=== PATIENT | male | born 1935 | race Caucasian/White ===

== ENCOUNTER 2017-03-03 20:44 | Inpatient (IN) | payer MEDICARE, MEDICAID ==
[2017-03-03 21:37] LABS: HEMATOCRIT 46.1 % (41.0-60); HEMOGLOBIN 15.7 gm/dL (12-16); MEAN CORPUSCULAR HEMOGLOBIN 31.4 pg (27.0-31.0); MEAN CORPUSCULAR HGB CONC 34.1 pg (28.0-36.0); MEAN PLATELET VOLUME 7.8 fl; RED BLOOD COUNT 5.01 Mil/cmm (3.80-5.80); RED CELL DISTRIBUTION WIDTH 11.7 % (11.5-20.0)
[2017-03-03 21:41] LABS: PLATELET COUNT 182 Th/cmm (150-400)
[2017-03-03 21:42] LABS: WHITE BLOOD COUNT 14.2 Th/cmm (4.8-10.8)
[2017-03-03 21:56] LABS: TOTAL CELLS COUNTED 100
[2017-03-03 21:57] LABS: ALB/GLOB RATIO 1.1 (1.0-1.8); ALKALINE PHOSPHATASE 64 U/L (34-104); ANION GAP 10.5 (7.0-16.0); BILIRUBIN,TOTAL 0.4 mg/dL (0.3-1.0); BUN - UREA NITROGEN 18 mg/dL (7-25); CALCIUM SERUM 8.8 mg/dL (8.6-10.3); CARBON DIOXIDE 27.1 mEq/L (21.0-31.0); CHLORIDE 97 mEq/L (98-107); GLUCOSE 165 mg/dL (70-105); POTASSIUM SERUM 3.6 mEq/L (3.5-5.1); SGOT 20 U/L (13-39); SGPT/ALT 11 U/L (7-52); SODIUM SERUM 131 mEq/L (136-145)
[2017-03-03 22:01] LABS: BAND NEUTROPHILE 21 % (0-10); BASOPHIL 0 % (0-3); EOSINOPHIL 0 % (0-5); NEUTROPHILS 70 % (40-80); PLATELET ESTIMATE ADEQUATE (NORMAL); PLATELET MORPHOLOGY NORMAL (NORMAL)
[2017-03-03] MEDS ORDERED: cefTRIAXone 1 GM in Sodium Chloride 0.9% 50 ML IV ONE (22:12)
[2017-03-03] MEDS ORDERED: Sodium Chloride 0.9% 500 ML IV ONE (22:12)
[2017-03-03 22:39] LABS: URINE BILIRUBIN NEGATIVE (NEGATIVE); URINE BLOOD LARGE (NEGATIVE); URINE GLUCOSE (UA) 100 mg/dL (NEGATIVE); URINE KETONE NEGATIVE (NEGATIVE); URINE PH 5.5 (4.6 - 8.0); URINE PROTEIN TRACE mg/dL (NEGATIVE); URINE UROBILINOGEN 0.2 E.U./dL (0.2 - 1.0)
--- NOTE | 2017-03-03 23:01 | ED Physician Chart ---
ED Chief Complaint/HPI - Patient Information Date Seen:: 03/03/17 Time Seen:: 21:20 Chief Complaint:: Fever History of Present Illness:: 81 yo male was brought from [facility] to ER for evaluation of fever (102.4 F) and tachycardia (HR 121). He was given Tylenol 650mg once before transfer. At ER, his temperature was 99 F. The patient did have a history of hematuria. Allergies:: Allergies Allergy/AdvReac Type Severity Reaction Status Date / Time No Known Drug Allergies Allergy Verified 03/03/17 21:03 Vitals:: Vital Signs - 8 hr 03/03/17 20:45 Temp 99.0 F HR 78 RR 20 BP 136/60 O2 Sat % 92 ED Review of Systems - Review of Systems General/Constitutional: No fever, No chills, Weakness Skin: No skin lesions Head: No headache Eyes: No loss of vision ENT: No nasal drainage Neck: No neck pain Cardio Vascular: No chest pain Pulmonary: No SOB GI: No nausea, No vomiting G/U: Hematuria Musculoskeletal: No bone or joint pain Psychiatric: Prior psych history ED Past Medical History - Past Medical History Past Medical History: Thyroid disorder, Dementia, Other (PVD, OA, BPH, Dysphagia ) Surgical History: other (Right AKA) Psychiatricy History: Dementia (Alzheimer's disease), Other (Psychosis, anxiety) Family Medical History - Family Member Mother History Unknown: Yes Ethnicity: Unknown Living Status: Unknown ED Physical Exam - Physical Examination Head: Atraumatic Eyes: PERRL, EOMI Skin: No ecchymosis ENMT: Nasal exam nl Neck: No nuchal rigidity Other Respiratory comments:: Bilateral lung field rhonchi Cardio Vascular: RRR, No murmur, gallop, rubs, NL S1 S2 GI: No tenderness/rebounding/guarding Other Extremities comments:: Right above knee amputation Other Neuro/Psych comments:: confused ED Labs/Radiology/EKG Results - Lab Results Results: Laboratory Tests 03/03/17 03/03/17 03/03/17 21:31 21:31 21:31 WBC 14.2 H D RBC 5.01 Hgb 15.7 Hct 46.1 MCV 92.0 MCH 31.4 H MCHC Differential 34.1 RDW 11.7 Plt Count 182 D MPV 7.8 Band Neutrophils % 21 H Neutrophils (Manual) 70 Lymphocytes 5 L Monocytes 4 Eosinophils 0 Basophils 0 Platelet Estimate ADEQUATE Platelet Morphology NORMAL RBC Morph Micro Appear NORMAL Sodium 131 L Potassium 3.6 Chloride 97 L Carbon Dioxide 27.1 Anion Gap 10.5 BUN 18 Creatinine 1.0 Est GFR ( Amer) TNP Est GFR (Non-Af Amer) TNP BUN/Creatinine Ratio 18.0 Glucose 165 H Hemoglobin A1c % 5.5 Whole Bld Lactic Acid Calcium 8.8 Total Bilirubin 0.4 AST 20 ALT 11 Alkaline Phosphatase 64 Total Protein 7.0 Albumin 3.7 L Globulin 3.3 Albumin/Globulin Ratio 1.1 03/03/17 Unknown WBC RBC Hgb Hct MCV MCH MCHC Differential RDW Plt Count MPV Band Neutrophils % Neutrophils (Manual) Lymphocytes Monocytes Eosinophils Basophils Platelet Estimate Platelet Morphology RBC Morph Micro Appear Sodium Potassium Chloride Carbon Dioxide Anion Gap BUN Creatinine Est GFR ( Amer) Est GFR (Non-Af Amer) BUN/Creatinine Ratio Glucose Hemoglobin A1c % Whole Bld Lactic Acid 1.73 Calcium Total Bilirubin AST ALT Alkaline Phosphatase Total Protein Albumin Globulin Albumin/Globulin Ratio - Radiology Results Results: CXR: unremarkable ED Assessment - Assessment General Assessment: Leukocytosis UTI Hyponatremia Critical Care Time: 30 min Excludes all billable procedures: Yes This condition life threatening/high prob of deterioration: No Assessment/Comments:: CBC, CMP, UA, Blood culture CXR, EKG NS 500 ml IV bolus Rocephin Admit to inpatient services ED Septic Shock - . Is Septic Shock (SBP<90, OR Lactate>4 mmol\L) present?: No - <6hrs of presentation: Vital Signs: Vital Signs - 8 hr 03/03/17 20:45 Temp 99.0 F HR 78 RR 20 BP 136/60 O2 Sat % 92 ED Reassessment (Disposition) - Reassessment Reassessment Condition:: Improved ED Discharge Plan - Patient Disposition Admit/Discharge/Transfer: Acute Care w/in this hosp
[2017-03-03 23:02] LABS: URINE COLOR YELLOW
[2017-03-03] MEDS ORDERED: D5-0.9%NS 1,000 ML IV SCH (23:04)
[2017-03-03 23:09] LABS: URINE RBC 25-50 /hpf (0-5)
[2017-03-03 23:11] LABS: URINE BACTERIA MANY /hpf (NONE SEEN); URINE EPITHELIAL CELLS NONE SEEN /lpf (FEW); URINE WBC 25-50 /hpf (0-5)
[2017-03-04] MEDS: D5-0.9%NS 1,000 ML IV SCH (00:30)
[2017-03-04] MEDS ORDERED: Piperacillin Sodium/Tazobact 3.375 gm Vial IV ONE (01:46)
[2017-03-04 06:43] LABS: % BASOPHILS 0.1 % (0.0-2.0); % EOSINOPHILS 0.1 % (0.0-5.0); % LYMPHOCYTES 9.4 % (20.0-50.0); % MONOCYTES 5.2 % (2.0-10.0); % NEUTROPHILS 85.2 % (40.0-80.0); HEMATOCRIT 41.7 % (41.0-60); HEMOGLOBIN 14.1 gm/dL (12-16); MEAN CELL VOLUME 93.1 fl (80-99); MEAN CORPUSCULAR HEMOGLOBIN 31.5 pg (27.0-31.0); MEAN CORPUSCULAR HGB CONC 33.8 pg (28.0-36.0); MEAN PLATELET VOLUME 7.6 fl; NEUTROPHILE ABSOLUTE 11.3 Th/cmm (1.8-8.0); RED BLOOD COUNT 4.48 Mil/cmm (3.80-5.80); RED CELL DISTRIBUTION WIDTH 11.1 % (11.5-20.0); WHITE BLOOD COUNT 13.2 Th/cmm (4.8-10.8)
[2017-03-04 06:56] LABS: PLATELET COUNT 145 Th/cmm (150-400)
--- NOTE | 2017-03-04 07:41 | Diagnostic Imaging Report ---
Chest x-ray single view History: Fever Comparison: 09/17/2015 The heart size is normal. No focal pulmonary parenchymal processes. No hilar or mediastinal abnormalities. Impression: No acute abnormalities.
[2017-03-04] MEDS ORDERED: Magnesium Hydroxide (MOM) 30 mL UDC PO PRN (08:44)
[2017-03-04] MEDS ORDERED: Non-Formulary Item 1 EA (Cranberry Fruit Concentrate [Cranberry] 450 MG) PO SCH (09:00)
[2017-03-04] MEDS ORDERED: Levofloxacin 500mg/100mL 500 MG/100 ML BAG IV SCH (09:00)
[2017-03-04 09:07] LABS: ALKALINE PHOSPHATASE 44 U/L (34-104); ANION GAP 7.4 (7.0-16.0); BILIRUBIN,TOTAL 0.5 mg/dL (0.3-1.0); BUN - UREA NITROGEN 13 mg/dL (7-25); BUN/CREATININE RATIO 18.6; CALCIUM SERUM 8.1 mg/dL (8.6-10.3); CARBON DIOXIDE 27.3 mEq/L (21.0-31.0); CHLORIDE 100 mEq/L (98-107); CREATININE - SERUM 0.7 mg/dL (0.7-1.3); MAGNESIUM 1.9 mg/dL (1.9-2.7); POTASSIUM SERUM 3.7 mEq/L (3.5-5.1); SGOT 19 U/L (13-39); SGPT/ALT 9 U/L (7-52); SODIUM SERUM 131 mEq/L (136-145)
[2017-03-04 09:21] LABS: GLUCOSE 115 mg/dL (70-105)
[2017-03-04] MEDS: Aspirin 81mg Chewable Tab PO SCH (10:40)
[2017-03-04] MEDS: Multivitamin w/ Minerals Tab PO SCH (10:40)
--- NOTE | 2017-03-04 10:44 | History & Physical ---
ADMIT DATE: IDENTIFYING DATA: The patient is an 81-year-old male. CHIEF COMPLAINT: Sent to Emergency Room for evaluation of high-grade fever of 102.4 with elevated heart rate. HISTORY OF PRESENT ILLNESS: An 81-year-old male who resides at [facility] has history of hypertension, BPH, Alzheimer's type dementia, noted to have a fever of 102.4, associated with increasing lethargy and tachycardiac. The patient was sent to Emergency Room for evaluation. The patient was seen by Emergency Room MD and subsequently admitted to the hospital after the patient was noted to have significant amount of leukocytosis. The patient's chest x-ray was reported normal though the patient's nursing staff at facility stated that the patient has cough and congestion as well. The patient also noted to have bladder outlet obstruction in the past as well. The patient does not provide a meaningful history. PAST MEDICAL HISTORY: Remarkable for: 1. Hypertension. 2. BPH. 3. DJD. MEDICATIONS AT HOME: The patient is taking Flomax, Proscar, thiamine, Namenda and Colace along with Aricept. ALLERGIES: The patient is not allergic to medications. SOCIAL HISTORY: The patient lives in a mcc. No history of smoking cigarette, alcohol or drug use. FAMILY MEDICAL HISTORY: Unknown. REVIEW OF SYSTEMS: Unable to obtain. PHYSICAL EXAMINATION: GENERAL: The patient is alert, awake, lying in the bed, not following any command. VITAL SIGNS: Temperature T-max 102.3, pulse is 100, respiratory rate is 20, blood pressure reported this morning as 122/59. HEENT: Normocephalic, atraumatic. Extraocular muscles are intact. Tongue was pink and coated. Oropharynx congested. NECK: Supple. No JVD. No hepatojugular reflex. No lymphadenopathy, thyromegaly or carotid bruit. HEART: Both heart sounds are regular. CHEST AND LUNGS: Equal in expansion with expiratory wheezing. ABDOMEN: Soft. No guarding. No rigidity. Liver, spleen not palpable. No palpable mass. EXTREMITIES: Remarkable for right above knee amputations noted. Peripheral pulses +2. No calf tenderness noted. NEUROLOGIC: Alert, awake, follows commands. No decreased power for the upper and lower extremity. No gross neuro deficits noted. AVAILABLE DIAGNOSTIC DATA: Performed in the Emergency Room has been reviewed. CLINICAL IMPRESSION: 1. Acute onset of high-grade fever of 102.4. Workup in the Emergency Room is reviewed. The patient has urinary tract infection. In the view of BPH and previous history of bladder outlet obstruction, I do suspect the patient has a complicated UTI, need to rule out for pyelonephritis. 2. Acute bronchitis. 3. Hypertension. 4. BPH. 5. Dementia. 6. DJD. 7. Encephalopathy. PLAN: 1. Admit this patient to Med/Surg floor. 2. IV fluid. 3. IV antibiotic. 4. Blood cultures, urine cultures. 5. Appropriate home medicine reconciliation. 6. ID consult. 7. Follow lab. 8. Follow consult recommendation. 9. Care plan reviewed and discussed with staff. [facility]# [id number]
[2017-03-04] MEDS ORDERED: VTE Chemical Prophylaxis Screen/Admission MC PRN (10:56)
--- NOTE | 2017-03-04 13:14 | Consultation ---
Consult Note - Consult Note Service Date: 03/04/17 Referring Physician: Jaren Rodriguez Consult Note: PHYSICIAN Consultation Note: Date of Admission: 03/03/17 Purpose of Consultation: sepsis, UTI pyelonephritis. Chief Complaint: Patient TIFFANY LIMA JR was [facility] with FEVER,PNEUMONIA. History of Present Illness: 81 y male admitted for fever, with chest congestion. He had developed fever of 102.4 degree F. On initial evaluation,his temperature was 99 degree F and WBC count was 14,200. UA suggested, UTI and he was started on zosyn and levaquin. ID consult was called for antibiotic management. Past Medical History: Allergies Allergy/AdvReac Type Severity Reaction Status Date / Time No Known Drug Allergies Allergy Verified 03/03/17 21:03 Vital Signs Temp 98.8 F 03/04/17 08:00 Pulse 76 03/04/17 08:00 Resp 17 03/04/17 08:00 BP 110/54 03/04/17 08:00 Pulse Ox 95 03/04/17 08:00 Intake & Output 03/03/17 03/04/17 03/04/17 18:59 06:59 18:59 Intake Total 100 Output Total 0 Balance 100 Weight (lbs) 55.565 kg 55.338 kg Intake: Intake, IV Amount 100 Levofloxacin 500mg/100mL 100 500 mg In 100 ml @ 100 mls/hr IV Q24HR [facility] Rx#: [id number] Output: Stool 0 Laboratory Results - last 24 hr 03/03/17 03/04/17 03/04/17 Unknown 06:40 06:40 WBC 13.2 H RBC 4.48 Hgb 14.1 Hct 41.7 MCV 93.1 MCH 31.5 H MCHC Differential 33.8 RDW 11.1 L Plt Count 145 L D MPV 7.6 Neutrophils % 85.2 H Lymphocytes % 9.4 L Monocytes % 5.2 Eosinophils % 0.1 Basophils % 0.1 Sodium 131 L Potassium 3.7 Chloride 100 Carbon Dioxide 27.3 Anion Gap 7.4 BUN 13 Creatinine 0.7 Est GFR ( Amer) TNP Est GFR (Non-Af Amer) TNP BUN/Creatinine Ratio 18.6 Glucose 115 H D Whole Bld Lactic Acid 1.73 Calcium 8.1 L Magnesium 1.9 Total Bilirubin 0.5 AST 19 ALT 9 Alkaline Phosphatase 44 Total Protein 5.9 L Albumin 3.0 L Globulin 2.9 Albumin/Globulin Ratio 1.0 Home Medication Medication Instructions Recorded Type Acetaminophen [Tylenol] 650 mg PO Q4HR PRN #0 tab 09/19/15 Rx Aspirin [Aspirin Chewable] 81 mg PO DAILY #0 ctb 09/19/15 Rx Donepezil Hcl [Aricept] 10 mg PO HS #0 tab 09/19/15 Rx Finasteride [Proscar*] 5 mg PO DAILY #0 tab 09/19/15 Rx Folic Acid [Folate*] 1 mg PO DAILY #0 tab 09/19/15 Rx Magnesium Hydroxide [Milk of 30 ml PO HS PRN #0 udc 09/19/15 Rx Magnesia] Memantine [Namenda] 10 mg PO BID #0 tab 09/19/15 Rx Multivitamin w/ Minerals 1 tab PO DAILY #0 tab 09/19/15 Rx [Theragran M] Tamsulosin [Flomax] 0.4 mg PO HS #0 cap 09/19/15 Rx Thiamine [Vitamin B1] 100 mg PO DAILY #0 tab 09/19/15 Rx Cranberry Fruit Concentrate 450 mg PO BID 03/03/17 History [Cranberry] Docusate Sodium [Colace] 100 mg PO BID 03/03/17 History Current Medications Generic Name Dose Route Start Last Admin Trade Name Minq PRN Reason Stop Dose Admin Acetaminophen 650 mg 03/04/17 08:44 Tylenol PO 05/03/17 08:43 Q4HR PRN Pain Aspirin 81 mg 03/04/17 09:00 03/04/17 10:40 Aspirin Chewable PO 05/03/17 08:59 81 mg DAILY BRADLEY Administration Donepezil HCl 10 mg 03/04/17 21:00 Aricept PO 05/03/17 20:59 HS BRADLEY Finasteride 5 mg 03/04/17 09:00 03/04/17 10:40 Proscar PO 05/03/17 08:59 5 mg DAILY BRADLEY Administration Protocol Folic Acid 1 mg 03/04/17 09:00 03/04/17 10:40 Folate PO 05/03/17 08:59 1 mg DAILY BRADLEY Administration Dextrose/Sodium Chloride 1,000 mls @ 75 mls/hr 03/03/17 23:51 03/04/17 00:30 D5-0.9%Ns IV 05/02/17 23:50 75 mls/hr .[id number] BRADLEY Administration Piperacillin Sod/Tazobactam 50 mls @ 100 mls/hr 03/04/17 12:00 03/04/17 12:37 Sod 3.375 gm/ Sodium Chloride IV 05/03/17 11:59 100 mls/hr Q6HR BRADLEY Administration Magnesium Hydroxide 30 ml 03/04/17 08:44 Milk Of Magnesia PO 05/03/17 08:43 HS PRN Constipation Memantine 10 mg 03/04/17 09:00 03/04/17 10:40 Namenda PO 05/03/17 08:59 10 mg BID BRADLEY Administration Miscellaneous 1 ea 03/04/17 10:56 Vte Chemical Prophylaxis Screen/ Admission 05/03/17 10:55 PRN PRN PROTOCOL Tamsulosin HCl 0.4 mg 03/04/17 21:00 Flomax PO 05/03/17 20:59 HS BRADLEY Thiamine HCl 100 mg 03/04/17 09:00 03/04/17 10:40 Vitamin B1 PO 05/03/17 08:59 100 mg DAILY BRADLEY Administration Review of Systems: A 12 point ROS was reviewed with the pertinent positive and negatives noted in the HPI. Social History Smoking Status Never smoker Family Medical History Family Medical History Start: 03/03/17 23: 48 Freq: ONCE Status: Active Document 03/03/17 23:48 YPENA (Rec: 03/04/17 02:20 YPENA SHERRY-[email or web address]) Family Medical History Mother History Unknown Yes Physical Exam: General: Comfortable, not in acute distress. HEENT: Head: normocephalic, atraumatic. Oral cavity: moist, pink tongue, eyes pallor present. Neck: supple, no JVD, no carotid bruit. Cardio: S1 and S2 WNL. Respiratory: VesiculAr breath sounds. no crackles. Abdominal: Soft NT ND BS. Genital/Urinary: Deferred. Extremities: NCCE. Neurological: Alert and awake, follows the commands. Assessment: 1. Sepsis 2/2 UTI. 2. UTI, complicated, pyelonephritis. 3. Dementia. 4. HTN. 5. BPH. Plan: WIll check renal us. Continue zosyn. DC levaquin. Follow up labs, and cultures. Signed, Joel Bustamante M.D. [id number]
[2017-03-05] MEDS: D5-0.9%NS 1,000 ML IV SCH (02:42)
[2017-03-05 06:34] LABS: % BASOPHILS 0.2 % (0.0-2.0); % EOSINOPHILS 0.2 % (0.0-5.0); % LYMPHOCYTES 9.4 % (20.0-50.0); % MONOCYTES 6.8 % (2.0-10.0); % NEUTROPHILS 83.4 % (40.0-80.0); HEMATOCRIT 40.5 % (41.0-60); HEMOGLOBIN 13.4 gm/dL (12-16); MEAN CELL VOLUME 92.8 fl (80-99); MEAN CORPUSCULAR HEMOGLOBIN 30.8 pg (27.0-31.0); MEAN CORPUSCULAR HGB CONC 33.2 pg (28.0-36.0); MEAN PLATELET VOLUME 7.8 fl; NEUTROPHILE ABSOLUTE 8.4 Th/cmm (1.8-8.0); PLATELET COUNT 155 Th/cmm (150-400); RED BLOOD COUNT 4.36 Mil/cmm (3.80-5.80); RED CELL DISTRIBUTION WIDTH 11.4 % (11.5-20.0)
[2017-03-05 07:14] LABS: ALKALINE PHOSPHATASE 40 U/L (34-104); ANION GAP 9.4 (7.0-16.0); BILIRUBIN,TOTAL 0.8 mg/dL (0.3-1.0); BUN - UREA NITROGEN 10 mg/dL (7-25); BUN/CREATININE RATIO 12.5; CALCIUM SERUM 8.4 mg/dL (8.6-10.3); CHLORIDE 102 mEq/L (98-107); CREATININE - SERUM 0.8 mg/dL (0.7-1.3); GLUCOSE 113 mg/dL (70-105); POTASSIUM SERUM 3.4 mEq/L (3.5-5.1); SGOT 21 U/L (13-39); SGPT/ALT 11 U/L (7-52); SODIUM SERUM 132 mEq/L (136-145)
[2017-03-05] MEDS: Aspirin 81mg Chewable Tab PO SCH (08:13)
[2017-03-05] MEDS: Multivitamin w/ Minerals Tab PO SCH (08:14)
[2017-03-05] MEDS ORDERED: Potassium Chloride 20 mEq ER Tab PO ONE (09:05)
[2017-03-05] MEDS ORDERED: Probiotic Screen MC PRN (10:13)
--- NOTE | 2017-03-05 10:25 | Diagnostic Imaging Report ---
Renal ultrasound HISTORY: Hydronephrosis, Pyelonephritis COMPARISON: None Technique: Sonography of the kidneys and urinary bladder was performed in multiple planes. FINDINGS: The right kidney measures 10.1 x 5.5 cm. No evidence of focal lesions or hydronephrosis. The left kidney measures 12.1 x 5.4 cm. No evidence of focal lesions or hydronephrosis. No evidence of elevated postvoid residual bladder volumes. Prominent prostate gland is seen with lobulated borders and mass effect upon the base of the urinary bladder. The prostate gland measures 5.6 x 6.1 x 6.1 cm. IMPRESSION: No evidence of hydronephrosis. Prominent lobulated prostate gland with mass effect upon the base of the urinary bladder, please correlate with clinical findings.
--- NOTE | 2017-03-06 01:08 | Infectious Disease Prog Note ---
Infectious Disease Subjective - Review of Systems Service Date: 03/05/17 Subjective: No fever. Infectious Disease Objective - Results Result Diagrams: 03/05/17 06:10 03/05/17 06:10 Recent Labs: Laboratory Last Values WBC 10.0 Th/cmm (4.8-10.8) D 03/05/17 06:10 RBC 4.36 Mil/cmm (3.80-5.80) 03/05/17 06:10 Hgb 13.4 gm/dL (12-16) 03/05/17 06:10 Hct 40.5 % (41.0-60) L 03/05/17 06:10 MCV 92.8 fl (80-99) 03/05/17 06:10 MCH 30.8 pg (27.0-31.0) 03/05/17 06:10 MCHC Differential 33.2 pg (28.0-36.0) 03/05/17 06:10 RDW 11.4 % (11.5-20.0) L 03/05/17 06:10 Plt Count 155 Th/cmm (150-400) 03/05/17 06:10 MPV 7.8 fl 03/05/17 06:10 Neutrophils % 83.4 % (40.0-80.0) H 03/05/17 06:10 Band Neutrophils % 21 % (0-10) H 03/03/17 21:31 Lymphocytes % 9.4 % (20.0-50.0) L 03/05/17 06:10 Monocytes % 6.8 % (2.0-10.0) 03/05/17 06:10 Eosinophils % 0.2 % (0.0-5.0) 03/05/17 06:10 Basophils % 0.2 % (0.0-2.0) 03/05/17 06:10 Neutrophils (Manual) 70 % (40-80) 03/03/17 21:31 Lymphocytes 5 % (20-50) L 03/03/17 21:31 Monocytes 4 % (2-10) 03/03/17 21:31 Eosinophils 0 % (0-5) 03/03/17 21:31 Basophils 0 % (0-3) 03/03/17 21:31 Platelet Estimate ADEQUATE (NORMAL) 03/03/17 21:31 Platelet Morphology NORMAL (NORMAL) 03/03/17 21:31 RBC Morph Micro Appear NORMAL (NORMAL) 03/03/17 21:31 Sodium 132 mEq/L (136-145) L 03/05/17 06:10 Potassium 3.4 mEq/L (3.5-5.1) L 03/05/17 06:10 Chloride 102 mEq/L (98-107) 03/05/17 06:10 Carbon Dioxide 24.0 mEq/L (21.0-31.0) 03/05/17 06:10 Anion Gap 9.4 (7.0-16.0) 03/05/17 06:10 BUN 10 mg/dL (7-25) 03/05/17 06:10 Creatinine 0.8 mg/dL (0.7-1.3) 03/05/17 06:10 Est GFR ( Amer) TNP 03/05/17 06:10 Est GFR (Non-Af Amer) TNP 03/05/17 06:10 BUN/Creatinine Ratio 12.5 03/05/17 06:10 Glucose 113 mg/dL (70-105) H 03/05/17 06:10 Hemoglobin A1c % 5.5 % (4.0-6.0) 03/03/17 21:31 Whole Bld Lactic Acid 1.73 mmol/L (0.60-1.99) 03/03/17 Unknown Calcium 8.4 mg/dL (8.6-10.3) L 03/05/17 06:10 Magnesium 1.9 mg/dL (1.9-2.7) 03/04/17 06:40 Total Bilirubin 0.8 mg/dL (0.3-1.0) 03/05/17 06:10 AST 21 U/L (13-39) 03/05/17 06:10 ALT 11 U/L (7-52) 03/05/17 06:10 Alkaline Phosphatase 40 U/L (34-104) 03/05/17 06:10 Total Protein 5.9 gm/dL (6.0-8.3) L 03/05/17 06:10 Albumin 3.0 gm/dL (4.2-5.5) L 03/05/17 06:10 Globulin 2.9 gm/dL 03/05/17 06:10 Albumin/Globulin Ratio 1.0 (1.0-1.8) 03/05/17 06:10 Urine Source RANDOM 03/03/17 22:20 Urine Color YELLOW 03/03/17 22:20 Urine Clarity CLOUDY (CLEAR) 03/03/17 22:20 Urine pH 5.5 (4.6 - 8.0) 03/03/17 22:20 Ur Specific [place] 1.025 (1.005-1.030) 03/03/17 22:20 Urine Protein TRACE mg/dL (NEGATIVE) 03/03/17 22:20 Urine Glucose (UA) 100 mg/dL (NEGATIVE) H 03/03/17 22:20 Urine Ketones NEGATIVE mg/dL (NEGATIVE) 03/03/17 22:20 Urine Blood LARGE (NEGATIVE) H 03/03/17 22:20 Urine Nitrate POSITIVE (NEGATIVE) H 03/03/17 22:20 Urine Bilirubin NEGATIVE (NEGATIVE) 03/03/17 22:20 Urine Urobilinogen 0.2 E.U./dL (0.2 - 1.0) 03/03/17 22:20 Ur Leukocyte Esterase SMALL (NEGATIVE) H 03/03/17 22:20 Urine RBC 25-50 /hpf (0-5) H 03/03/17 22:20 Urine WBC 25-50 /hpf (0-5) H 03/03/17 22:20 Ur Epithelial Cells NONE SEEN /lpf (FEW) 03/03/17 22:20 Urine Bacteria MANY /hpf (NONE SEEN) 03/03/17 22:20 Stool Leukocyte NO WBC SEEN 03/04/17 14:00 - Physical Exam Vitals and I&O: Vital Signs Temp 98 F 03/06/17 00:00 Pulse 62 03/06/17 00:00 Resp 19 03/06/17 00:00 BP 131/65 03/06/17 00:00 Pulse Ox 97 03/06/17 00:00 Intake & Output 03/05/17 03/05/17 03/06/17 06:59 18:59 06:59 Intake Total 337.5 900 Balance 337.5 900 Weight (lbs) 55.338 kg 55.338 kg Intake: Intake, IV Amount 337.5 100 D5-0.9%Ns 1,000 ml @ 75 237.5 mls/hr IV .[id number] [facility] Rx #:[id number] Piperacillin Sodium/ 100 100 Tazobact 3.375 gm In Sodium Chloride 0.9% 50 ml @ 100 mls/hr IV Q6HR [facility] Rx#:[id number] Oral 0 800 Other: # Voids 2 4 # Bowel Movements 1 0 Active Medications: Current Medications Acetaminophen (Tylenol) 650 mg PO Q4HR PRN PRN Reason: Pain Stop: 05/03/17 08:43 Last Admin: 03/05/17 08:14 Dose: 650 mg Aspirin (Aspirin Chewable) 81 mg PO DAILY BRADLEY Stop: 05/03/17 08:59 Last Admin: 03/05/17 08:13 Dose: 81 mg Donepezil HCl (Aricept) 10 mg PO HS BRADLEY Stop: 05/03/17 20:59 Last Admin: 03/05/17 20:21 Dose: 10 mg Finasteride (Proscar) 5 mg PO DAILY BRADLEY PRN Reason: Protocol Stop: 05/03/17 08:59 Last Admin: 03/05/17 08:14 Dose: 5 mg Folic Acid (Folate) 1 mg PO DAILY BRADLEY Stop: 05/03/17 08:59 Last Admin: 03/05/17 08:14 Dose: 1 mg Dextrose/Sodium Chloride (D5-0.9%Ns) 1,000 mls @ 75 mls/hr IV .[id number] [facility] Stop: 05/02/17 23:50 Last Infusion: 03/05/17 05:52 Dose: 75 mls/hr Piperacillin Sod/Tazobactam (Sod 3.375 gm/ Sodium Chloride) 50 mls @ 100 mls/ hr IV Q6HR [facility] Stop: 05/03/17 11:59 Last Admin: 03/06/17 00:38 Dose: 100 mls/hr Lactobacillus Rhamnosus (Culturelle) 1 each PO DAILY BRADLEY Stop: 05/05/17 08:59 Magnesium Hydroxide (Milk Of Magnesia) 30 ml PO HS PRN PRN Reason: Constipation Stop: 05/03/17 08:43 Memantine (Namenda) 10 mg PO BID BR[facility] Stop: 05/03/17 08:59 Last Admin: 03/05/17 17:11 Dose: 10 mg Miscellaneous (Vte Chemical Prophylaxis Screen/ Admission) 1 ea [facility] PRN PRN PRN Reason: PROTOCOL Stop: 05/03/17 10:55 Miscellaneous (Probiotic Screen) 1 ea [facility] PRN PRN PRN Reason: PROTOCOL Stop: 05/04/17 10:12 Tamsulosin HCl (Flomax) 0.4 mg PO HS [facility] Stop: 05/03/17 20:59 Last Admin: 03/05/17 20:20 Dose: 0.4 mg Thiamine HCl (Vitamin B1) 100 mg PO DAILY BR[facility] Stop: 05/03/17 08:59 Last Admin: 03/05/17 08:14 Dose: 100 mg General: no acute distress HEENT: atraumatic, normocephalic, PERRLA, EOMI Neck: supple, no thyromegaly Cardiovascular: S1S2, regular Lungs: clear to auscultation bilaterally, clear to percussion Abdomen: soft, no tender, no distended Extremities: no cyanosis, no clubbing, no edema Neurological: awake, alert - Procedures Procedures: Procedures Procedure Code Date GROUP PSYCHOTHERAPY 17700 08/29/15 GROUP PSYCHOTHERAPY [id number] 08/29/15 OTHER GROUP THERAPY 94.44 08/24/14 Infectious Disease Assmt/Plan - Problem List Patient Problems: All Active Problems Combative behavior (Acute) R46.89 Dementia (Acute) F03.90 Leukocytosis (Acute) D72.829 - Assessment Assessment: 1. Sepsis 2/2 UTI. 2. UTI, complicated, pyelonephritis. GNR. 3. Dementia. 4. HTN. 5. BPH.? Prostatitis. Plan: Continue zosyn. Check PSA. Pelvic US.
[2017-03-06 06:21] LABS: % BASOPHILS 0.3 % (0.0-2.0); % EOSINOPHILS 1.2 % (0.0-5.0); % MONOCYTES 8.3 % (2.0-10.0); % NEUTROPHILS 73.2 % (40.0-80.0); HEMOGLOBIN 13.1 gm/dL (12-16); MEAN CELL VOLUME 92.7 fl (80-99); MEAN CORPUSCULAR HEMOGLOBIN 30.4 pg (27.0-31.0); MEAN CORPUSCULAR HGB CONC 32.8 pg (28.0-36.0); PLATELET COUNT 177 Th/cmm (150-400); RED BLOOD COUNT 4.32 Mil/cmm (3.80-5.80); RED CELL DISTRIBUTION WIDTH 11.4 % (11.5-20.0)
[2017-03-06 06:22] LABS: WHITE BLOOD COUNT 6.9 Th/cmm (4.8-10.8)
[2017-03-06 06:45] LABS: ALKALINE PHOSPHATASE 35 U/L (34-104); ANION GAP 7.2 (7.0-16.0); BILIRUBIN,TOTAL 0.5 mg/dL (0.3-1.0); BUN - UREA NITROGEN 8 mg/dL (7-25); CALCIUM SERUM 8.3 mg/dL (8.6-10.3); CARBON DIOXIDE 26.3 mEq/L (21.0-31.0); CHLORIDE 108 mEq/L (98-107); CREATININE - SERUM 0.8 mg/dL (0.7-1.3); GLUCOSE 118 mg/dL (70-105); POTASSIUM SERUM 3.5 mEq/L (3.5-5.1); SGOT 17 U/L (13-39); SGPT/ALT 11 U/L (7-52); SODIUM SERUM 138 mEq/L (136-145)
[2017-03-06] MEDS: Lactobacillus Rhamnosus 10 Billion CFU Capsule PO SCH (09:11)
[2017-03-06] MEDS: Aspirin 81mg Chewable Tab PO SCH (09:11)
[2017-03-06] MEDS: Multivitamin w/ Minerals Tab PO SCH (09:11)
[2017-03-06] MEDS: D5-0.9%NS 1,000 ML IV SCH (11:17)
--- NOTE | 2017-03-06 11:39 | Infectious Disease Prog Note ---
Infectious Disease Subjective - Review of Systems Service Date: 03/06/17 Subjective: No fever. Infectious Disease Objective - Results Result Diagrams: 03/06/17 05:50 03/06/17 05:50 Recent Labs: Laboratory Last Values WBC 6.9 Th/cmm (4.8-10.8) D 03/06/17 05:50 RBC 4.32 Mil/cmm (3.80-5.80) 03/06/17 05:50 Hgb 13.1 gm/dL (12-16) 03/06/17 05:50 Hct 40.0 % (41.0-60) L 03/06/17 05:50 MCV 92.7 fl (80-99) 03/06/17 05:50 MCH 30.4 pg (27.0-31.0) 03/06/17 05:50 MCHC Differential 32.8 pg (28.0-36.0) 03/06/17 05:50 RDW 11.4 % (11.5-20.0) L 03/06/17 05:50 Plt Count 177 Th/cmm (150-400) 03/06/17 05:50 MPV 8.0 fl 03/06/17 05:50 Neutrophils % 73.2 % (40.0-80.0) 03/06/17 05:50 Band Neutrophils % 21 % (0-10) H 03/03/17 21:31 Lymphocytes % 17.0 % (20.0-50.0) L 03/06/17 05:50 Monocytes % 8.3 % (2.0-10.0) 03/06/17 05:50 Eosinophils % 1.2 % (0.0-5.0) 03/06/17 05:50 Basophils % 0.3 % (0.0-2.0) 03/06/17 05:50 Neutrophils (Manual) 70 % (40-80) 03/03/17 21:31 Lymphocytes 5 % (20-50) L 03/03/17 21:31 Monocytes 4 % (2-10) 03/03/17 21:31 Eosinophils 0 % (0-5) 03/03/17 21:31 Basophils 0 % (0-3) 03/03/17 21:31 Platelet Estimate ADEQUATE (NORMAL) 03/03/17 21:31 Platelet Morphology NORMAL (NORMAL) 03/03/17 21:31 RBC Morph Micro Appear NORMAL (NORMAL) 03/03/17 21:31 Sodium 138 mEq/L (136-145) 03/06/17 05:50 Potassium 3.5 mEq/L (3.5-5.1) 03/06/17 05:50 Chloride 108 mEq/L (98-107) H 03/06/17 05:50 Carbon Dioxide 26.3 mEq/L (21.0-31.0) 03/06/17 05:50 Anion Gap 7.2 (7.0-16.0) 03/06/17 05:50 BUN 8 mg/dL (7-25) 03/06/17 05:50 Creatinine 0.8 mg/dL (0.7-1.3) 03/06/17 05:50 Est GFR ( Amer) TNP 03/06/17 05:50 Est GFR (Non-Af Amer) TNP 03/06/17 05:50 BUN/Creatinine Ratio 10.0 03/06/17 05:50 Glucose 118 mg/dL (70-105) H 03/06/17 05:50 Hemoglobin A1c % 5.5 % (4.0-6.0) 03/03/17 21:31 Whole Bld Lactic Acid 1.73 mmol/L (0.60-1.99) 03/03/17 Unknown Calcium 8.3 mg/dL (8.6-10.3) L 03/06/17 05:50 Magnesium 1.9 mg/dL (1.9-2.7) 03/04/17 06:40 Total Bilirubin 0.5 mg/dL (0.3-1.0) 03/06/17 05:50 AST 17 U/L (13-39) 03/06/17 05:50 ALT 11 U/L (7-52) 03/06/17 05:50 Alkaline Phosphatase 35 U/L (34-104) 03/06/17 05:50 Total Protein 5.9 gm/dL (6.0-8.3) L 03/06/17 05:50 Albumin 2.9 gm/dL (4.2-5.5) L 03/06/17 05:50 Globulin 3.0 gm/dL 03/06/17 05:50 Albumin/Globulin Ratio 1.0 (1.0-1.8) 03/06/17 05:50 Urine Source RANDOM 03/03/17 22:20 Urine Color YELLOW 03/03/17 22:20 Urine Clarity CLOUDY (CLEAR) 03/03/17 22:20 Urine pH 5.5 (4.6 - 8.0) 03/03/17 22:20 Ur Specific [place] 1.025 (1.005-1.030) 03/03/17 22:20 Urine Protein TRACE mg/dL (NEGATIVE) 03/03/17 22:20 Urine Glucose (UA) 100 mg/dL (NEGATIVE) H 03/03/17 22:20 Urine Ketones NEGATIVE mg/dL (NEGATIVE) 03/03/17 22:20 Urine Blood LARGE (NEGATIVE) H 03/03/17 22:20 Urine Nitrate POSITIVE (NEGATIVE) H 03/03/17 22:20 Urine Bilirubin NEGATIVE (NEGATIVE) 03/03/17 22:20 Urine Urobilinogen 0.2 E.U./dL (0.2 - 1.0) 03/03/17 22:20 Ur Leukocyte Esterase SMALL (NEGATIVE) H 03/03/17 22:20 Urine RBC 25-50 /hpf (0-5) H 03/03/17 22:20 Urine WBC 25-50 /hpf (0-5) H 03/03/17 22:20 Ur Epithelial Cells NONE SEEN /lpf (FEW) 03/03/17 22:20 Urine Bacteria MANY /hpf (NONE SEEN) 03/03/17 22:20 Stool Leukocyte NO WBC SEEN 03/04/17 14:00 - Physical Exam Vitals and I&O: Vital Signs Temp 98.5 F 03/06/17 09:13 Pulse 73 03/06/17 09:13 Resp 18 03/06/17 09:13 BP 115/60 03/06/17 09:13 Pulse Ox 95 03/06/17 09:13 Intake & Output 03/05/17 03/06/17 03/06/17 18:59 06:59 18:59 Intake Total 1662.5 100 Balance 1662.5 100 Weight (lbs) 55.338 kg 55.248 kg Intake: Intake, IV Amount 862.5 100 D5-0.9%Ns 1,000 ml @ 75 762.5 mls/hr IV .[id number] [facility] Rx #:[id number] Piperacillin Sodium/ 100 100 Tazobact 3.375 gm In Sodium Chloride 0.9% 50 ml @ 100 mls/hr IV Q6HR [facility] Rx#:[id number] Oral 800 Other: # Voids 4 2 # Bowel Movements 0 0 Active Medications: Current Medications Acetaminophen (Tylenol) 650 mg PO Q4HR PRN PRN Reason: Pain Stop: 05/03/17 08:43 Last Admin: 03/05/17 08:14 Dose: 650 mg Aspirin (Aspirin Chewable) 81 mg PO DAILY [facility] Stop: 05/03/17 08:59 Last Admin: 03/06/17 09:11 Dose: 81 mg Donepezil HCl (Aricept) 10 mg PO HS [facility] Stop: 05/03/17 20:59 Last Admin: 03/05/17 20:21 Dose: 10 mg Finasteride (Proscar) 5 mg PO DAILY [facility] PRN Reason: Protocol Stop: 05/03/17 08:59 Last Admin: 03/06/17 09:10 Dose: 5 mg Folic Acid (Folate) 1 mg PO DAILY [facility] Stop: 05/03/17 08:59 Last Admin: 03/06/17 09:11 Dose: 1 mg Dextrose/Sodium Chloride (D5-0.9%Ns) 1,000 mls @ 75 mls/hr IV .[id number] [facility] Stop: 05/02/17 23:50 Last Admin: 03/06/17 11:17 Dose: 75 mls/hr Piperacillin Sod/Tazobactam (Sod 3.375 gm/ Sodium Chloride) 50 mls @ 100 mls/ hr IV Q6HR [facility] Stop: 05/03/17 11:59 Last Admin: 03/06/17 11:16 Dose: 100 mls/hr Lactobacillus Rhamnosus (Culturelle) 1 each PO DAILY [facility] Stop: 05/05/17 08:59 Last Admin: 03/06/17 09:11 Dose: 1 each Magnesium Hydroxide (Milk Of Magnesia) 30 ml PO HS PRN PRN Reason: Constipation Stop: 05/03/17 08:43 Memantine (Namenda) 10 mg PO BID [facility] Stop: 05/03/17 08:59 Last Admin: 03/06/17 09:11 Dose: 10 mg Miscellaneous (Vte Chemical Prophylaxis Screen/ Admission) 1 ea PRN PRN PRN Reason: PROTOCOL Stop: 05/03/17 10:55 Miscellaneous (Probiotic Screen) 1 ea [facility] PRN PRN PRN Reason: PROTOCOL Stop: 05/04/17 10:12 Tamsulosin HCl (Flomax) 0.4 mg PO HS [facility] Stop: 05/03/17 20:59 Last Admin: 03/05/17 20:20 Dose: 0.4 mg Thiamine HCl (Vitamin B1) 100 mg PO DAILY [facility] Stop: 05/03/17 08:59 Last Admin: 03/06/17 09:11 Dose: 100 mg General: no acute distress, cachectic HEENT: atraumatic, normocephalic, PERRLA, EOMI, moist mucous membrane Neck: supple, no thyromegaly Cardiovascular: S1S2, regular Lungs: clear to auscultation bilaterally, clear to percussion Abdomen: soft, no tender, no distended Extremities: no cyanosis, no clubbing, no edema Skin: intact - Procedures Procedures: Procedures Procedure Code Date GROUP PSYCHOTHERAPY 40010 08/29/15 GROUP PSYCHOTHERAPY GZHZZZZ 08/29/15 OTHER GROUP THERAPY 94.44 08/24/14 Infectious Disease Assmt/Plan - Problem List Patient Problems: All Active Problems Combative behavior (Acute) R46.89 Dementia (Acute) F03.90 Leukocytosis (Acute) D72.829 - Assessment Assessment: 1. Sepsis 2/2 UTI. 2. UTI, complicated, pyelonephritis. GNR. 3. Dementia. 4. HTN. 5. BPH.? Prostatitis. Plan: Change zosyn to levaquin po for 8 more days.
--- NOTE | 2017-03-07 06:18 | Consultation ---
DATE OF CONSULTATION: 03/06/2017 IDENTIFYING INFORMATION: The patient is an 81-year-old male. REASON FOR CONSULTATION: I was asked to see this patient who has been agitated. This is a well-known case to me as I have been seeing him at [facility] with a history of dementia with history of agitated behavior. The patient himself was a poor historian. He has been spitting on people. He was admitted because of fever. PAST PSYCHIATRIC HISTORY: Has a history of dementia and psychosis, multiple prior admissions to this facility because of agitated behavior. MEDICAL HISTORY: Deferred to the medical doctor. The patient was admitted with fever. 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 FAMILY AND SOCIAL HISTORY: The patient is staying at [facility]. No further information was given by the patient. MENTAL STATUS EXAMINATION: The patient was somewhat sedated. Apparently, he was acting out, had to be medicated, but in general, he is demented, confused. He has been spitting at people. Unable to participate in memory testing. Long- and short-term goal poor. His insight and judgment is impaired. 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 MEDICAL DIAGNOSES: Deferred to the medical doctor. I would recommend to start the patient on Risperdal and the patient can go to [facility] when medically cleared and keep on one-to-one because of his agitated behavior. Thank you very much for allowing me to partake in this most interesting gentleman. JOB# [id number]
[2017-03-07] MEDS: D5-0.9%NS 1,000 ML IV SCH ×2 (08:54→20:22)
[2017-03-07] MEDS: Lactobacillus Rhamnosus 10 Billion CFU Capsule PO SCH (08:57)
[2017-03-07] MEDS: Aspirin 81mg Chewable Tab PO SCH (08:58)
[2017-03-07] MEDS: Multivitamin w/ Minerals Tab PO SCH (08:58)
[2017-03-08] MEDS: Lactobacillus Rhamnosus 10 Billion CFU Capsule PO SCH (08:46)
[2017-03-08] MEDS: Multivitamin w/ Minerals Tab PO SCH (08:46)
[2017-03-08] MEDS: Aspirin 81mg Chewable Tab PO SCH (08:46)
[2017-03-08] MEDS: D5-0.9%NS 1,000 ML IV SCH (11:02)
--- NOTE | 2017-03-08 15:15 | Infectious Disease Prog Note ---
Infectious Disease Subjective - Review of Systems Service Date: 03/08/17 Subjective: No fever. Infectious Disease Objective - Results Result Diagrams: 03/06/17 05:50 03/06/17 05:50 Recent Labs: Laboratory Last Values WBC 6.9 Th/cmm (4.8-10.8) D 03/06/17 05:50 RBC 4.32 Mil/cmm (3.80-5.80) 03/06/17 05:50 Hgb 13.1 gm/dL (12-16) 03/06/17 05:50 Hct 40.0 % (41.0-60) L 03/06/17 05:50 MCV 92.7 fl (80-99) 03/06/17 05:50 MCH 30.4 pg (27.0-31.0) 03/06/17 05:50 MCHC Differential 32.8 pg (28.0-36.0) 03/06/17 05:50 RDW 11.4 % (11.5-20.0) L 03/06/17 05:50 Plt Count 177 Th/cmm (150-400) 03/06/17 05:50 MPV 8.0 fl 03/06/17 05:50 Neutrophils % 73.2 % (40.0-80.0) 03/06/17 05:50 Band Neutrophils % 21 % (0-10) H 03/03/17 21:31 Lymphocytes % 17.0 % (20.0-50.0) L 03/06/17 05:50 Monocytes % 8.3 % (2.0-10.0) 03/06/17 05:50 Eosinophils % 1.2 % (0.0-5.0) 03/06/17 05:50 Basophils % 0.3 % (0.0-2.0) 03/06/17 05:50 Neutrophils (Manual) 70 % (40-80) 03/03/17 21:31 Lymphocytes 5 % (20-50) L 03/03/17 21:31 Monocytes 4 % (2-10) 03/03/17 21:31 Eosinophils 0 % (0-5) 03/03/17 21:31 Basophils 0 % (0-3) 03/03/17 21:31 Platelet Estimate ADEQUATE (NORMAL) 03/03/17 21:31 Platelet Morphology NORMAL (NORMAL) 03/03/17 21:31 RBC Morph Micro Appear NORMAL (NORMAL) 03/03/17 21:31 Sodium 138 mEq/L (136-145) 03/06/17 05:50 Potassium 3.5 mEq/L (3.5-5.1) 03/06/17 05:50 Chloride 108 mEq/L (98-107) H 03/06/17 05:50 Carbon Dioxide 26.3 mEq/L (21.0-31.0) 03/06/17 05:50 Anion Gap 7.2 (7.0-16.0) 03/06/17 05:50 BUN 8 mg/dL (7-25) 03/06/17 05:50 Creatinine 0.8 mg/dL (0.7-1.3) 03/06/17 05:50 Est GFR ( Amer) TNP 03/06/17 05:50 Est GFR (Non-Af Amer) TNP 03/06/17 05:50 BUN/Creatinine Ratio 10.0 03/06/17 05:50 Glucose 118 mg/dL (70-105) H 03/06/17 05:50 Hemoglobin A1c % 5.5 % (4.0-6.0) 03/03/17 21:31 Whole Bld Lactic Acid 1.73 mmol/L (0.60-1.99) 03/03/17 Unknown Calcium 8.3 mg/dL (8.6-10.3) L 03/06/17 05:50 Magnesium 1.9 mg/dL (1.9-2.7) 03/04/17 06:40 Total Bilirubin 0.5 mg/dL (0.3-1.0) 03/06/17 05:50 AST 17 U/L (13-39) 03/06/17 05:50 ALT 11 U/L (7-52) 03/06/17 05:50 Alkaline Phosphatase 35 U/L (34-104) 03/06/17 05:50 Total Protein 5.9 gm/dL (6.0-8.3) L 03/06/17 05:50 Albumin 2.9 gm/dL (4.2-5.5) L 03/06/17 05:50 Globulin 3.0 gm/dL 03/06/17 05:50 Albumin/Globulin Ratio 1.0 (1.0-1.8) 03/06/17 05:50 Prostate Specific Ag 16.6 ng/mL (0.0-4.0) H 03/06/17 05:50 Urine Source RANDOM 03/03/17 22:20 Urine Color YELLOW 03/03/17 22:20 Urine Clarity CLOUDY (CLEAR) 03/03/17 22:20 Urine pH 5.5 (4.6 - 8.0) 03/03/17 22:20 Ur Specific [place] 1.025 (1.005-1.030) 03/03/17 22:20 Urine Protein TRACE mg/dL (NEGATIVE) 03/03/17 22:20 Urine Glucose (UA) 100 mg/dL (NEGATIVE) H 03/03/17 22:20 Urine Ketones NEGATIVE mg/dL (NEGATIVE) 03/03/17 22:20 Urine Blood LARGE (NEGATIVE) H 03/03/17 22:20 Urine Nitrate POSITIVE (NEGATIVE) H 03/03/17 22:20 Urine Bilirubin NEGATIVE (NEGATIVE) 03/03/17 22:20 Urine Urobilinogen 0.2 E.U./dL (0.2 - 1.0) 03/03/17 22:20 Ur Leukocyte Esterase SMALL (NEGATIVE) H 03/03/17 22:20 Urine RBC 25-50 /hpf (0-5) H 03/03/17 22:20 Urine WBC 25-50 /hpf (0-5) H 03/03/17 22:20 Ur Epithelial Cells NONE SEEN /lpf (FEW) 03/03/17 22:20 Urine Bacteria MANY /hpf (NONE SEEN) 03/03/17 22:20 Stool Leukocyte NO WBC SEEN 03/04/17 14:00 - Physical Exam Vitals and I&O: Vital Signs Temp 97.4 F 03/08/17 13:00 Pulse 57 03/08/17 13:00 Resp 18 03/08/17 13:00 BP 129/56 03/08/17 13:00 Pulse Ox 96 03/08/17 13:00 Intake & Output 03/07/17 03/08/17 03/08/17 18:59 06:59 18:59 Intake Total 423 803 0159 Balance 290 176 6018 Weight (lbs) 53.07 kg 53.07 kg Intake: Intake, IV Amount 860 1000 D5-0.9%Ns 1,000 ml @ 75 860 1000 mls/hr IV .[id number] [facility] Rx #:[id number] Oral 480 Other: # Voids 2 3 # Bowel Movements 2 0 Active Medications: Current Medications Acetaminophen (Tylenol) 650 mg PO Q4HR PRN PRN Reason: Pain Stop: 05/03/17 08:43 Last Admin: 03/05/17 08:14 Dose: 650 mg Aspirin (Aspirin Chewable) 81 mg PO DAILY [facility] Stop: 05/03/17 08:59 Last Admin: 03/08/17 08:46 Dose: 81 mg Donepezil HCl (Aricept) 10 mg PO HS [facility] Stop: 05/03/17 20:59 Last Admin: 03/07/17 20:25 Dose: 10 mg Finasteride (Proscar) 5 mg PO DAILY [facility] PRN Reason: Protocol Stop: 05/03/17 08:59 Last Admin: 03/08/17 08:46 Dose: 5 mg Folic Acid (Folate) 1 mg PO DAILY [facility] Stop: 05/03/17 08:59 Last Admin: 03/08/17 08:46 Dose: 1 mg Dextrose/Sodium Chloride (D5-0.9%Ns) 1,000 mls @ 75 mls/hr IV .[id number] [facility] Stop: 05/02/17 23:50 Last Admin: 03/08/17 11:02 Dose: 75 mls/hr Lactobacillus Rhamnosus (Culturelle) 1 each PO DAILY [facility] Stop: 05/05/17 08:59 Last Admin: 03/08/17 08:46 Dose: 1 each Levofloxacin (Levaquin) 500 mg PO DAILY [facility] Stop: 05/05/17 11:44 Last Admin: 03/08/17 08:46 Dose: 500 mg Magnesium Hydroxide (Milk Of Magnesia) 30 ml PO HS PRN PRN Reason: Constipation Stop: 05/03/17 08:43 Memantine (Namenda) 10 mg PO BID [facility] Stop: 05/03/17 08:59 Last Admin: 03/08/17 08:46 Dose: 10 mg Miscellaneous (Vte Chemical Prophylaxis Screen/ Admission) 1 ea [facility] PRN PRN PRN Reason: PROTOCOL Stop: 05/03/17 10:55 Miscellaneous (Probiotic Screen) 1 ea [facility] PRN PRN PRN Reason: PROTOCOL Stop: 01/15/18 10:12 Risperidone (Risperdal) 0.5 mg PO BID [facility] PRN Reason: Protocol Stop: 05/05/17 16:59 Last Admin: 03/08/17 08:46 Dose: 0.5 mg Tamsulosin HCl (Flomax) 0.4 mg PO HS [facility] Stop: 05/03/17 20:59 Last Admin: 03/07/17 20:25 Dose: 0.4 mg Thiamine HCl (Vitamin B1) 100 mg PO DAILY [facility] Stop: 05/03/17 08:59 Last Admin: 03/08/17 08:46 Dose: 100 mg General: no acute distress HEENT: atraumatic, normocephalic, PERRLA, EOMI, moist mucous membrane Neck: supple, no thyromegaly Cardiovascular: S1S2, regular Lungs: clear to auscultation bilaterally, clear to percussion Abdomen: soft, no tender, no distended Extremities: no cyanosis, no clubbing, no edema Neurological: awake, alert Skin: intact - Procedures Procedures: Procedures Procedure Code Date GROUP PSYCHOTHERAPY 70229 08/29/15 GROUP PSYCHOTHERAPY GZHZZZZ 08/29/15 OTHER GROUP THERAPY 94.44 08/24/14 Infectious Disease Assmt/Plan - Problem List Patient Problems: All Active Problems Combative behavior (Acute) R46.89 Dementia (Acute) F03.90 Leukocytosis (Acute) D72.829 - Assessment Assessment: 1. Sepsis 2/2 UTI. 2. UTI, complicated, pyelonephritis. GNR. 3. Dementia. 4. HTN. 5. BPH.? Prostatitis. Plan: Continue levaquin po for 6 more days. Nutritional Asmnt/Malnutr-PDOC - Dietary Evaluation Malnutrition Findings (Please click <Entered> for more info): Nutritional Asmnt/Malnutrition Start: 03/07/17 13: 30 Text: Status: Complete Freq: Document 03/07/17 13:30 MELINDA (Rec: 03/07/17 13:35 MELINDA BUSCH) Nutritional Asmnt/Malnutrition Patient General Information Diagnosis Fever PNA Pertinent Medical Hx/Surgical Hx DJD, HTN, BPH, alzheimer's type dementia Subjective Information Pt asleep at time of visit Current Diet Order/ Nutrition Support soft/bland diet Patient / S.O Not Indicated Pertinent Medications D5NS @75ml/hr (1800ml/day, 306kcals/day), folate, cultrelle, MOM, vit B1 Pertinent Labs labs from 03/06: Na 138, K 3.5 , Cl 108, CO2 26.3, BUN 8, Cr 0.8, Ca 8.3, glucose 118, alb 2.9 Nutritional Hx/Data Height 1.65 m Height (Calculated Centimeters) 165.1 Current Weight (lbs) 53.07 kg Weight (Calculated Kilograms) 53.1 Weight (Calculated Grams) 57089.3 Body Mass Index (BMI) 19.4 Recent Weight Change No Weight Status Approriate GI Symptoms GI Symptoms None Last BM 03/07 Difficult in: None Food Allergies No Cultural/Ethnic/Holiness Belief unknown Usual diet at home unknown Skin Integrity/Comment: mckayla score 13 Current %PO Good (75-100%) Estimated Nutritional Goals BEE in Kcals: Using Current wt Calories/Kcals/Kg 30-35kcals/kg Kcals Calculated 1590-1855kcals/day Protein: Using Current wt Protein g/k.2-1.5g/kg Protein Calculated 64-80g/day Fluid: ml 1590-1855ml/day (1ml/kcal) Nutritional Problem 1. Problem Problem Increased nutrient needs realted to Etiology increased energy expenditure as evidenced Signs/Symptoms: by fever, PNA. Intervention/Recommendation Comments Recommend continuing soft/ bland diet Expected Outcomes/Goals Expected Outcomes/Goals PO intake >75% of meals
[2017-03-09] MEDS: D5-0.9%NS 1,000 ML IV SCH (07:29)
[2017-03-09] MEDS: Lactobacillus Rhamnosus 10 Billion CFU Capsule PO SCH (09:29)
[2017-03-09] MEDS: Aspirin 81mg Chewable Tab PO SCH (09:29)
[2017-03-09] MEDS: Multivitamin w/ Minerals Tab PO SCH (09:29)
[2017-03-09 10:19] LABS: % EOSINOPHILS 3.7 % (0.0-5.0); % LYMPHOCYTES 16.1 % (20.0-50.0); % MONOCYTES 8.3 % (2.0-10.0); % NEUTROPHILS 71.9 % (40.0-80.0); HEMATOCRIT 40.9 % (41.0-60); MEAN CELL VOLUME 91.2 fl (80-99); MEAN CORPUSCULAR HEMOGLOBIN 31.1 pg (27.0-31.0); MEAN CORPUSCULAR HGB CONC 34.1 pg (28.0-36.0); MEAN PLATELET VOLUME 6.7 fl; NEUTROPHILE ABSOLUTE 5.9 Th/cmm (1.8-8.0); RED BLOOD COUNT 4.49 Mil/cmm (3.80-5.80); RED CELL DISTRIBUTION WIDTH 11.4 % (11.5-20.0); WHITE BLOOD COUNT 8.2 Th/cmm (4.8-10.8)
[2017-03-09 10:27] LABS: PLATELET COUNT 399 Th/cmm (150-400)
[2017-03-09 10:58] LABS: ALB/GLOB RATIO 0.9 (1.0-1.8); ALKALINE PHOSPHATASE 40 U/L (34-104); ANION GAP 8.8 (7.0-16.0); BILIRUBIN,TOTAL 0.6 mg/dL (0.3-1.0); BUN - UREA NITROGEN 8 mg/dL (7-25); BUN/CREATININE RATIO 11.4; CALCIUM SERUM 8.6 mg/dL (8.6-10.3); CARBON DIOXIDE 24.7 mEq/L (21.0-31.0); CHLORIDE 102 mEq/L (98-107); CREATININE - SERUM 0.7 mg/dL (0.7-1.3); GLUCOSE 103 mg/dL (70-105); POTASSIUM SERUM 3.5 mEq/L (3.5-5.1); SGOT 25 U/L (13-39); SGPT/ALT 26 U/L (7-52); SODIUM SERUM 132 mEq/L (136-145)
--- NOTE | 2017-03-09 12:36 | Infectious Disease Prog Note ---
Infectious Disease Subjective - Review of Systems Service Date: 03/09/17 Subjective: No fever. Infectious Disease Objective - Results Result Diagrams: 03/09/17 09:50 03/09/17 09:50 Recent Labs: Laboratory Last Values WBC 8.2 Th/cmm (4.8-10.8) 03/09/17 09:50 RBC 4.49 Mil/cmm (3.80-5.80) 03/09/17 09:50 Hgb 14.0 gm/dL (12-16) 03/09/17 09:50 Hct 40.9 % (41.0-60) L 03/09/17 09:50 MCV 91.2 fl (80-99) 03/09/17 09:50 MCH 31.1 pg (27.0-31.0) H 03/09/17 09:50 MCHC Differential 34.1 pg (28.0-36.0) 03/09/17 09:50 RDW 11.4 % (11.5-20.0) L 03/09/17 09:50 Plt Count 399 Th/cmm (150-400) D 03/09/17 09:50 MPV 6.7 fl 03/09/17 09:50 Neutrophils % 71.9 % (40.0-80.0) 03/09/17 09:50 Band Neutrophils % 21 % (0-10) H 03/03/17 21:31 Lymphocytes % 16.1 % (20.0-50.0) L 03/09/17 09:50 Monocytes % 8.3 % (2.0-10.0) 03/09/17 09:50 Eosinophils % 3.7 % (0.0-5.0) 03/09/17 09:50 Basophils % 0.0 % (0.0-2.0) 03/09/17 09:50 Neutrophils (Manual) 70 % (40-80) 03/03/17 21:31 Lymphocytes 5 % (20-50) L 03/03/17 21:31 Monocytes 4 % (2-10) 03/03/17 21:31 Eosinophils 0 % (0-5) 03/03/17 21:31 Basophils 0 % (0-3) 03/03/17 21:31 Platelet Estimate ADEQUATE (NORMAL) 03/03/17 21:31 Platelet Morphology NORMAL (NORMAL) 03/03/17 21:31 RBC Morph Micro Appear NORMAL (NORMAL) 03/03/17 21:31 Sodium 132 mEq/L (136-145) L 03/09/17 09:50 Potassium 3.5 mEq/L (3.5-5.1) 03/09/17 09:50 Chloride 102 mEq/L (98-107) 03/09/17 09:50 Carbon Dioxide 24.7 mEq/L (21.0-31.0) 03/09/17 09:50 Anion Gap 8.8 (7.0-16.0) 03/09/17 09:50 BUN 8 mg/dL (7-25) 03/09/17 09:50 Creatinine 0.7 mg/dL (0.7-1.3) 03/09/17 09:50 Est GFR ( Amer) TNP 03/09/17 09:50 Est GFR (Non-Af Amer) TNP 03/09/17 09:50 BUN/Creatinine Ratio 11.4 03/09/17 09:50 Glucose 103 mg/dL (70-105) 03/09/17 09:50 Hemoglobin A1c % 5.5 % (4.0-6.0) 03/03/17 21:31 Whole Bld Lactic Acid 1.73 mmol/L (0.60-1.99) 03/03/17 Unknown Calcium 8.6 mg/dL (8.6-10.3) 03/09/17 09:50 Magnesium 1.9 mg/dL (1.9-2.7) 03/04/17 06:40 Total Bilirubin 0.6 mg/dL (0.3-1.0) 03/09/17 09:50 AST 25 U/L (13-39) 03/09/17 09:50 ALT 26 U/L (7-52) 03/09/17 09:50 Alkaline Phosphatase 40 U/L (34-104) 03/09/17 09:50 Total Protein 6.4 gm/dL (6.0-8.3) 03/09/17 09:50 Albumin 3.1 gm/dL (4.2-5.5) L 03/09/17 09:50 Globulin 3.3 gm/dL 03/09/17 09:50 Albumin/Globulin Ratio 0.9 (1.0-1.8) L 03/09/17 09:50 Prostate Specific Ag 16.6 ng/mL (0.0-4.0) H 03/06/17 05:50 Urine Source RANDOM 03/03/17 22:20 Urine Color YELLOW 03/03/17 22:20 Urine Clarity CLOUDY (CLEAR) 03/03/17 22:20 Urine pH 5.5 (4.6 - 8.0) 03/03/17 22:20 Ur Specific [place] 1.025 (1.005-1.030) 03/03/17 22:20 Urine Protein TRACE mg/dL (NEGATIVE) 03/03/17 22:20 Urine Glucose (UA) 100 mg/dL (NEGATIVE) H 03/03/17 22:20 Urine Ketones NEGATIVE mg/dL (NEGATIVE) 03/03/17 22:20 Urine Blood LARGE (NEGATIVE) H 03/03/17 22:20 Urine Nitrate POSITIVE (NEGATIVE) H 03/03/17 22:20 Urine Bilirubin NEGATIVE (NEGATIVE) 03/03/17 22:20 Urine Urobilinogen 0.2 E.U./dL (0.2 - 1.0) 03/03/17 22:20 Ur Leukocyte Esterase SMALL (NEGATIVE) H 03/03/17 22:20 Urine RBC 25-50 /hpf (0-5) H 03/03/17 22:20 Urine WBC 25-50 /hpf (0-5) H 03/03/17 22:20 Ur Epithelial Cells NONE SEEN /lpf (FEW) 03/03/17 22:20 Urine Bacteria MANY /hpf (NONE SEEN) 03/03/17 22:20 Stool Leukocyte NO WBC SEEN 03/04/17 14:00 - Physical Exam Vitals and I&O: Vital Signs Temp 97.4 F 03/09/17 12:00 Pulse 50 03/09/17 12:00 Resp 18 03/09/17 12:00 BP 151/57 03/09/17 12:00 Pulse Ox 99 03/09/17 12:00 Intake & Output 03/08/17 03/09/17 03/09/17 18:59 06:59 18:59 Intake Total 1360 1000 Balance 1360 1000 Weight (lbs) 53.07 kg 53.07 kg Intake: Intake, IV Amount 1000 1000 D5-0.9%Ns 1,000 ml @ 75 1000 1000 mls/hr IV .[id number] [facility] Rx #:[id number] Oral 360 Other: # Voids 4 # Bowel Movements 3 Active Medications: Current Medications Acetaminophen (Tylenol) 650 mg PO Q4HR PRN PRN Reason: Pain Stop: 05/03/17 08:43 Last Admin: 03/05/17 08:14 Dose: 650 mg Aspirin (Aspirin Chewable) 81 mg PO DAILY [facility] Stop: 05/03/17 08:59 Last Admin: 03/09/17 09:29 Dose: 81 mg Donepezil HCl (Aricept) 10 mg PO HS [facility] Stop: 05/03/17 20:59 Last Admin: 03/08/17 21:00 Dose: 10 mg Finasteride (Proscar) 5 mg PO DAILY [facility] PRN Reason: Protocol Stop: 05/03/17 08:59 Last Admin: 03/09/17 09:29 Dose: 5 mg Folic Acid (Folate) 1 mg PO DAILY [facility] Stop: 05/03/17 08:59 Last Admin: 03/09/17 09:29 Dose: 1 mg Dextrose/Sodium Chloride (D5-0.9%Ns) 1,000 mls @ 75 mls/hr IV .[id number] [facility] Stop: 05/02/17 23:50 Last Admin: 03/09/17 07:29 Dose: 75 mls/hr Lactobacillus Rhamnosus (Culturelle) 1 each PO DAILY [facility] Stop: 05/05/17 08:59 Last Admin: 03/09/17 09:29 Dose: 1 each Levofloxacin (Levaquin) 500 mg PO DAILY [facility] Stop: 05/05/17 11:44 Last Admin: 03/09/17 09:29 Dose: 500 mg Magnesium Hydroxide (Milk Of Magnesia) 30 ml PO HS PRN PRN Reason: Constipation Stop: 05/03/17 08:43 Memantine (Namenda) 10 mg PO BID [facility] Stop: 05/03/17 08:59 Last Admin: 03/09/17 09:29 Dose: 10 mg Miscellaneous (Vte Chemical Prophylaxis Screen/ Admission) 1 ea [facility] PRN PRN PRN Reason: PROTOCOL Stop: 05/03/17 10:55 Miscellaneous (Probiotic Screen) 1 ea [facility] PRN PRN PRN Reason: PROTOCOL Stop: 05/04/17 10:12 Risperidone (Risperdal) 0.5 mg PO BID [facility] PRN Reason: Protocol Stop: 05/05/17 16:59 Last Admin: 03/09/17 09:29 Dose: 0.5 mg Tamsulosin HCl (Flomax) 0.4 mg PO HS [facility] Stop: 05/03/17 20:59 Last Admin: 03/08/17 21:00 Dose: 0.4 mg Thiamine HCl (Vitamin B1) 100 mg PO DAILY [facility] Stop: 05/03/17 08:59 Last Admin: 03/09/17 09:30 Dose: 100 mg General: no acute distress, well developed, well nourished HEENT: atraumatic, normocephalic, PERRLA, EOMI Neck: supple, no thyromegaly Cardiovascular: S1S2, regular Lungs: clear to auscultation bilaterally, clear to percussion Abdomen: soft, no tender, no distended Extremities: edema, no cyanosis, no clubbing Skin: intact - Procedures Procedures: Procedures Procedure Code Date GROUP PSYCHOTHERAPY 17811 08/29/15 GROUP PSYCHOTHERAPY [id number] 08/29/15 OTHER GROUP THERAPY 94.44 08/24/14 Infectious Disease Assmt/Plan - Problem List Patient Problems: All Active Problems Combative behavior (Acute) R46.89 Dementia (Acute) F03.90 Leukocytosis (Acute) D72.829 - Assessment Assessment: 1. Sepsis 2/2 UTI. 2. UTI, complicated, pyelonephritis. E coli. 3. Dementia. 4. HTN. 5. BPH.? Prostatitis. Plan: Continue levaquin po for 5 more days. Nutritional Asmnt/Malnutr-PDOC - Dietary Evaluation Malnutrition Findings (Please click <Entered> for more info): Nutritional Asmnt/Malnutrition Start: 03/07/17 13: 30 Text: Status: Complete Freq: Document 03/07/17 13:30 MELINDA (Rec: 03/07/17 13:35 MELINDA BUSCH) Nutritional Asmnt/Malnutrition Patient General Information Diagnosis Fever PNA Pertinent Medical Hx/Surgical Hx DJD, HTN, BPH, alzheimer's type dementia Subjective Information Pt asleep at time of visit Current Diet Order/ Nutrition Support soft/bland diet Patient / S.O Not Indicated Pertinent Medications D5NS @75ml/hr (1800ml/day, 306kcals/day), folate, cultrelle, MOM, vit B1 Pertinent Labs labs from 03/06: Na 138, K 3.5 , Cl 108, CO2 26.3, BUN 8, Cr 0.8, Ca 8.3, glucose 118, alb 2.9 Nutritional Hx/Data Height 1.65 m Height (Calculated Centimeters) 165.1 Current Weight (lbs) 53.07 kg Weight (Calculated Kilograms) 53.1 Weight (Calculated Grams) 85513.3 Body Mass Index (BMI) 19.4 Recent Weight Change No Weight Status Approriate GI Symptoms GI Symptoms None Last BM 03/07 Difficult in: None Food Allergies No Cultural/Ethnic/Mosque Belief unknown Usual diet at home unknown Skin Integrity/Comment: mckayla score 13 Current %PO Good (75-100%) Estimated Nutritional Goals BEE in Kcals: Using Current wt Calories/Kcals/Kg 30-35kcals/kg Kcals Calculated 1590-1855kcals/day Protein: Using Current wt Protein g/k.2-1.5g/kg Protein Calculated 64-80g/day Fluid: ml 1590-1855ml/day (1ml/kcal) Nutritional Problem 1. Problem Problem Increased nutrient needs realted to Etiology increased energy expenditure as evidenced Signs/Symptoms: by fever, PNA. Intervention/Recommendation Comments Recommend continuing soft/ bland diet Expected Outcomes/Goals Expected Outcomes/Goals PO intake >75% of meals
--- NOTE | 2017-03-09 21:56 | Progress Notes ---
DATE: 03/09/2017 Case was discussed with staff of patient, reviewed record. The patient continues to be unpredictable, impulsive, needing redirection. Continues to have poor insight, unable to make safe plan for self-care, easily agitated. He is compliant with the medication with no side effects, no sedation, no nausea, no extrapyramidal symptoms. I have him on the Risperdal. He is on Namenda 10 mg twice a day, Aricept 10 mg at bedtime, Risperdal 0.5 mg twice a day. Thank you very much for allowing me to participate in the care of this most interesting gentleman. JOB# [id number]
--- NOTE | 2017-03-10 14:30 | Discharge Summary ---
DATE OF DISCHARGE: 03/09/2017 PRINCIPAL DIAGNOSES: 1. Acute pyelonephritis. 2. Acute bronchitis. 3. Benign prostatic hypertrophy with bladder outlet obstruction. 4. Complicated urinary tract infection. 5. Escherichia coli urinary tract infection. 6. Encephalopathy. 7. Alzheimer dementia. 8. Psychotic disorder exacerbation. 9. Peripheral vascular disease, status post right above knee amputation. 10. Fall risk. 11. Debility. BRIEF STATEMENT FOR THE REASON FOR ADMISSION: An 81[facility] to [facility] Room for high-grade fever of 102.4 evaluation with increasing lethargy and tachycardia. The patient was worked up in ER and subsequently admitted. Please refer to my dictated medical H and P for further information. HOSPITAL COURSE: The patient was admitted to Med/Surg floor, IV fluid, IV antibiotic were given. Blood cultures and urine cultures were done. Appropriate medication was reconciliated. Infectious Disease consultation was also requested. The patient was seen by Infectious Disease. Renal ultrasound was done to rule out hydronephrosis on abscess which did reveal no evidence of hydronephrosis, prominent lobulated prostate gland with mass effect consistent with bladder outlet obstruction. The patient's urine culture did grow E. coli. Blood cultures were unremarkable. The patient did have psychotic behavior and the patient was spitting and hitting the staff which required psychiatrist evaluation from Dr. Cano. The patient was placed on Risperdal 0.25 mg b.i.d. The patient's behavior calmed down, but the patient stopped eating. At that time the patient's Risperdal dose was decreased. The patient remained very calm, so decision was made that the patient can be [facility] and complete the course of antibiotic with p.o. Levaquin. The patient is discharged to [facility] with p.o. antibiotic and other medication as patient was receiving. The patient will be followed by myself and psychiatrist as scheduled. JOB# [id number]
== END 2017-03-09 16:25 | disposition home or self-care (01) | DRG 871 ==
LOC: ER 20:44 → MSI 23:00
PROVIDERS: ADMIT Internal Medicine; ATTEND Internal Medicine
DX: A41.9 Sepsis, unspecified organism (principal); G93.40 Encephalopathy, unspecified; I73.9 Peripheral vascular disease, unspecified; G30.9 Alzheimer's disease, unspecified; R13.10 Dysphagia, unspecified; E87.1 Hypo-osmolality and hyponatremia; N13.8 Other obstructive and reflux uropathy; F02.80 Dementia in other diseases classified elsewhere, unspecified severity, without behavioral disturbance, psychotic disturbance, mood disturbance, and anxiety; N12 Tubulo-interstitial nephritis, not specified as acute or chronic; J20.9 Acute bronchitis, unspecified; I10 Essential (primary) hypertension; M19.90 Unspecified osteoarthritis, unspecified site; F29 Unspecified psychosis not due to a substance or known physiological condition; F41.9 Anxiety disorder, unspecified; B96.20 Unspecified Escherichia coli [E. coli] as the cause of diseases classified elsewhere; Z91.81 History of falling; N40.1 Benign prostatic hyperplasia with lower urinary tract symptoms; Z89.611 Acquired absence of right leg above knee; Z79.82 Long term (current) use of aspirin
CPT/HCPCS: 36415-UA; 71010-TC; 76770-TC; 80053-TC; 81001-TC; 83036-90; 83605; 83735-TC; 84153-90; 85007-TC; 85025-TC; 85027-TC; 87086-90; 87230-TC; 89055-TC; 93005; J0696; J1956; J2543; J7030; J7042; Z7502; Z7610